=== PATIENT | male | born 1945 | race Caucasian/White ===

== ENCOUNTER 2023-08-09 13:38 | Emergency (ER) | payer MEDICARE, SELFPAY ==
--- NOTE | ~2023-08-09 | XR_ITS ---
XR chest 2V 08/09/2023 14:48 Indication: Persistent cough Procedure: 2 view chest Comparison: 11/01/2016 Findings: Heart size normal. Bibasilar atelectasis. No focal pneumonia, edema, significant effusion o r pneumothorax. No acute osseous abnormality. Impression: 1: Bibasilar atelectasis. Reviewed, dictated and finalized at location A. Impression: 1: Bibasilar atelectasis.
[2023-08-09 13:52] VITALS: BP 129/77; PULSE 74; RESP 18; TEMP 36.4; O2SAT 97
[2023-08-09 14:00] VITALS: O2SAT 97
--- NOTE | 2023-08-09 14:36 | ED_ITS ---
HPI - URI/Sore Throat General Chief Complaint: Upper Respiratory Infection Stated Complaint: URI Time Seen by Provider: 08/09/23 14:28 Related Data Home Medications Medication Instructions Recorded Confirmed tadalafil 5 mg tablet (Cialis) 5 mg PO DAILY 05/14/23 05/14/23 Allergies Allergy/AdvReac Type Severity Reaction Status Date / Time No Known Allergies Allergy Verified 05/14/23 08:22 [facility] Family History Family History Father Family history of heart disease in male family member before age 55 Mother Family history of heart disease in male family member before age 55 Other Family history of cardiac disorder Social History Social History Smoking status: Former smoker Smoking end date: 03/15/84 Alcohol intake: current Course Course Emergency Course: Chart review performed, patient here with head and chest congestion with a persistent cough x1 week. Reportedly was treated with Z-Edilberto and Tessalon Perles by PCP. Triage vitals grossly normal. PCP note from 05/14/2023. History of prostate cancer about 5 years ago, had radiation and is followed by urology. Prior smoker. Vital Signs Vital signs: Vital Signs Temperature 97.6 F 08/09/23 13:52 Pulse Rate 74 08/09/23 13:52 Respiratory Rate 18 08/09/23 13:52 Blood Pressure 129/77 08/09/23 13:52 Pulse Oximetry 97 08/09/23 13:52 Oxygen Delivery Room Air 08/09/23 13:52 Temperature 97.6 F 08/09/23 13:52 Pulse Rate 74 08/09/23 13:52 Respiratory Rate 18 08/09/23 13:52 Blood Pressure 129/77 08/09/23 13:52 Pulse Oximetry 97 08/09/23 14:00 Oxygen Delivery Room Air 08/09/23 14:00 MDM - URI/Sore Throat Lab Data Labs: Lab Results 08/09/23 Range/Units 14:05 Influenza A (RT-PCR) Pending Influenza B (RT-PCR) Pending RSV (RT-PCR) Pending SARS-CoV-2 RNA (RT-PCR) Pending Discharge Plan Discharge Prescriptions: No Action tadalafil [Cialis] 5 mg tablet 5 mg PO DAILY azithromycin [Zithromax Z-Edilberto] 250 mg tablet See Rx Instructions PO .COMPLEX Qty: 6 0RF Rx Instructions: take 500 mg today (day 1), then 250 mg for 4 days (days 2-5) PO benzonatate 200 mg capsule 200 mg PO TID PRN (Reason: cough) Qty: 30 0RF Follow-up/Referrals: Garfield Ingram, [Primary Care Provider] -
[2023-08-09 14:45] LABS: Influenza A QL RT-PCR Negative (Negative); Influenza B QL RT-PCR Negative (Negative); RSV RNA, RT-PCR Negative (Negative); SARS-CoV-2 RNA PCR Negative (Negative)
[2023-08-09 15:02] VITALS: BP 134/80; PULSE 66; RESP 19; O2SAT 94
[2023-08-09 15:06] LABS: Basophils Absolute Auto 0.1 K/mm3 (0.0-0.1); Basophils Percent Auto 0.7 % (0.2-1.2); Eosinophils Absolute Auto 0.2 K/mm3 (0-0.3); Eosinophils Percent Auto 3.4 % (0-4.4); Hematocrit 46.3 % (42.0-52.0); Hemoglobin 15.9 g/dL (14.0-18.0); Immature Granulocyte Absolute 0.03 K/mm3 (0.00-0.031); Immature Granulocyte Percent A 0.4 % (0-0.5); Lymphocytes Absolute Auto 0.77 K/mm3 (0.9-3.2); Lymphocytes Percent Auto 10.8 % (18.3-44.2); Mean Corpuscular HGB Conc 34.3 g/dl (32-36); Mean Corpuscular Hemoglobin 30.2 pg (26-34); Mean Platelet Volume 9.4 fl (7.4-10.4); Monocytes Absolute Auto 0.5 K/mm3 (0.1-0.6); Monocytes Percent Auto 6.3 % (2.6-8.5); Neutrophils Absolute Auto 5.6 K/mm3 (1.3-6.7); Neutrophils Percent Auto 78.4 % (45.5-73.1); Platelet Count Result 225 k/mm3 (150-375); Red Blood Count 5.26 M/mm3 (4.6-6.20); Red Cell Distribution Width 12.8 % (11.5-14.5); White Blood Count 7.2 K/mm3 (4.5-10.0)
[2023-08-09 15:17] LABS: Alanine Aminotransferase 24 U/L (6-50); Albumin Level 4.4 g/dL (3.5-5.1); Alkaline Phosphatase 88 U/L (38-126); Anion Gap 7 mmol/L (4-12); Aspartate Amino Transferase 28 U/L (17-59); Bilirubin,Total 0.7 mg/dL (0.2-1.3); Blood Urea Nitrogen 17 mg/dL (9-20); Calcium 9.2 mg/dL (8.4-10.2); Carbon Dioxide 21 mmol/L (22-30); Chloride 108 mmol/L (98-107); Estimated CRCL calculation 55 ml/min; Estimated Glomerular Filt Rate > 60; Glucose 106 mg/dL (65-110); Potassium 4.2 mmol/L (3.4-5.0); Sodium 136 mmol/L (137-145)
--- NOTE | 2023-08-09 15:20 | ED.GENADULT ---
HPI - General Adult General Chief complaint: Upper Respiratory Infection Stated complaint: URI Time Seen by Provider: 08/09/23 14:28 History of Present Illness HPI narrative: Patient is a 77-year-old male who presents the emergency department this afternoon complaining of and some chest congestion for the past week. Patient states that he has been taking a Z-Edilberto and has 1 pill left to finish it and has been taking some Tessalon Perles which has helped somewhat for the cough, however, has not completely alleviated the cough. Patient denies taking any additional [id number] medications for this cough. He admits that everybody in his office is having similar symptoms. He denies any fevers or chills at home and is currently denying any additional symptoms including chest pain, nausea, vomiting, abdominal pain, and denies any urinary symptoms. No additional symptoms or concerns at this time. Related Data Home Medications Medication Instructions Recorded Confirmed tadalafil 5 mg tablet (Cialis) 5 mg PO DAILY 05/14/23 05/14/23 Allergies Allergy/AdvReac Type Severity Reaction Status Date / Time No Known Allergies Allergy Verified 05/14/23 08:22 Review of Systems Review of Systems: All systems are reviewed and are negative unless stated otherwise in the HPI. [facility] Family History Family History Father Family history of heart disease in male family member before age 55 Mother Family history of heart disease in male family member before age 55 Other Family history of cardiac disorder Social History Social History Smoking status: Former smoker Smoking end date: 03/15/84 Alcohol intake: current Exam Narrative: General: Alert, awake, afebrile, in no acute distress. HEENT: PERRL, no rhinorrhea, no post nasal drip, oropharynx clear. Cardiovascular: Regular rate and rhythm, no murmurs, rubs or gallops, no peripheral edema. Respiratory: Clear to auscultation bilaterally, no tachypnea, no wheezing, no rhonchi, no rubs, no respiratory distress. Abdomen: Soft, nontender, nondistended, no rebound, no guarding, no peritoneal signs. Musculoskeletal: No joint swelling or deformity, normal muscle tone. Skin: No rashes or petechia, no signs of infection. Neurological: Alert and oriented to person, place, and time. Follows all commands. No focal deficits, speech is clear and fluent. Course Vital Signs Vital signs: Vital Signs Temperature 97.6 F 08/09/23 13:52 Pulse Rate 74 08/09/23 13:52 Respiratory Rate 18 08/09/23 13:52 Blood Pressure 129/77 08/09/23 13:52 Pulse Oximetry 97 08/09/23 13:52 Oxygen Delivery Room Air 08/09/23 13:52 Temperature 97.6 F 08/09/23 13:52 Pulse Rate 66 08/09/23 15:02 Respiratory Rate 19 08/09/23 15:02 Blood Pressure 134/80 08/09/23 15:02 Pulse Oximetry 94 08/09/23 15:02 Oxygen Delivery Room Air 08/09/23 14:00 Medical Decision Making MDM Narrative Medical decision making narrative: The patient was evaluated by myself in the emergency department. History is obtained from patient who is an independent historian and physical exam was performed. External medical records were reviewed at this time. IV was established and pertinent tests were ordered. Laboratory results obtained revealing no acute process. Imaging studies obtained included CXR which was independently interpreted by me revealing mild bibasilar atelectasis otherwise no acute process, which is pending final radiology interpretation. Differential diagnosis considerations include acute viral syndrome and infectious process such as pneumonia. Comorbidities impacting this visit include none. I have evaluated and discussed social determinants of health with the patient that could potentially impact subsequent diagnosis and treatment plans. On repeat assessmen
[2023-08-09 15:28] LABS: NT Pro B Type Natriuretic Pept 267 pg/mL (19.9-100); Troponin I < 0.012 ng/mL (0.000-0.034)
[2023-08-09 15:43] VITALS: BP 139/73; PULSE 61; RESP 20; TEMP 36.9; O2SAT 96
== END 2023-08-09 15:45 | disposition home or self-care (01) ==
PROVIDERS: Student in an Organized Health Care Education/Training Program; Emergency Provider Emergency Medicine; PCP Internal Medicine
DX: J06.9 Acute upper respiratory infection, unspecified (principal); Z20.822 Contact with and (suspected) exposure to COVID-19; Z87.891 Personal history of nicotine dependence
CPT/HCPCS: 36415; 71046; 80053; 83880; 84484; 85025; 87637; 99284